=== PATIENT | female | born 1955 ===

== ENCOUNTER 2020-04-07 09:53 | Inpatient (IN) ==
[2020-04-07] MEDS ORDERED: CeFAZolin Syr 2,000MG/20 ML 2,000 MG/20 ML SYRINGE IVPB ONE (10:10)
[2020-04-07] MEDS ORDERED: Ringers Solution, Lactated 1,000 ML IVC SCH ×2 (10:15→14:00)
[2020-04-07] MEDS ORDERED: *HR* HYDROmorphone PF 0.5 MG/0.5 ML SYRINGE IVP PRN (10:40)
[2020-04-07] MEDS ORDERED: Ondansetron 4 MG/2 ML VIAL IVP PRN ×2 (10:40→14:00)
[2020-04-07] MEDS ORDERED: Promethazine 6.25 MG in Water for inj. (sterile) 20 ML IVPB PRN (10:40)
[2020-04-07] MEDS ORDERED: *HR* OxyCODONE/APAP 5/325 TABLET PO PRN ×2 (10:40→14:00)
[2020-04-07] MEDS ORDERED: Acetaminophen IV 1,000 MG/100 ML INFUS..BTL IVPB ONE (10:41)
[2020-04-07] MEDS ORDERED: *HR* Propofol 200 MG/20 ML VIAL IVP ONE (10:47)
[2020-04-07] MEDS ORDERED: Ondansetron 4 MG/2 ML VIAL ONE (10:47)
[2020-04-07] MEDS ORDERED: Dexamethasone 4 MG/ML VIAL ONE (10:47)
[2020-04-07] MEDS ORDERED: Lidocaine -MPF 2% 2 ML VIAL ONE (10:47)
[2020-04-07] MEDS ORDERED: *HR* Succinylcholine 200 MG/10 ML VIAL IVP ONE (10:47)
[2020-04-07] MEDS ORDERED: Lidocaine HCL 4 ML Topical Solution (Laryng-O-Jet Kit Sterile Pak) TP ONE (10:47)
[2020-04-07] MEDS ORDERED: Ethanol\\Acetic Acid\\Na Ace\\Ben 1,000 ML IRRIG.SOLN IR ONE (10:49)
[2020-04-07] MEDS ORDERED: Vancomycin 1,000 MG VIAL ONE (10:49)
[2020-04-07] MEDS ORDERED: ROPIVACAINE/PF/NS 0.25% 1 EACH SYRINGE INTRAART ONE (11:25)
[2020-04-07] MEDS ORDERED: Ropivacaine/PF 0.5% 30 ML VIAL ONE (11:25)
[2020-04-07] MEDS ORDERED: *HR* Midazolam HCl 2 MG/2 ML VIAL ONE (11:25)
[2020-04-07] MEDS ORDERED: Povidone-Iodine 45 ML, Sodium Chloride IRRigation 1,000 ML IR ONE (12:10)
[2020-04-07] MEDS ORDERED: *HR* FentaNYL (PF) 100 MCG/2 ML VIAL ONE (12:25)
[2020-04-07 13:52] VITALS: BP 146/81
[2020-04-07] MEDS ORDERED: Ibuprofen 600 MG TABLET PO PRN (14:00)
[2020-04-07] MEDS ORDERED: Dextrose Gel 15 GM/37.5 ML TUBE PO PRN ×2 (14:00)
[2020-04-07] MEDS ORDERED: Sennosides 8.6 MG TABLET PO PRN (14:00)
[2020-04-07] MEDS ORDERED: D5% in Water 1,000 ML IVC PRN (14:00)
[2020-04-07] MEDS ORDERED: MOM Conc 10 ML UD.LIQ PO PRN (14:00)
[2020-04-07] MEDS ORDERED: *HR* Dextrose 50 % in Water (Vial) 50 ML VIAL IVP PRN (14:00)
[2020-04-07] MEDS ORDERED: Naloxone 0.4 MG/ML INJ IVP PRN (14:00)
[2020-04-07] MEDS ORDERED: *HR* OxyCODONE Immed Rel 5 MG TABLET PO PRN (14:00)
[2020-04-07 14:09] LABS: Hematocrit 38.8 % (35.3-44.9); Hemoglobin 12.2 g/dL (11.5-15.4)
[2020-04-07] MEDS ORDERED: Patient Taking Own Medication 1 EACH OP SCH (15:00)
[2020-04-07] MEDS ORDERED: Insulin LISPRO 300 UNITS/3 ML VIAL SQ SCH ×3 (15:00→21:00)
[2020-04-07] MEDS: Insulin LISPRO 300 UNITS/3 ML VIAL SQ SCH ×2 (15:10→18:55)
[2020-04-07] MEDS ORDERED: Nitrofurantoin (BID) 100 MG CAPSULE PO SCH (18:00)
[2020-04-07] MEDS ORDERED: *HR* Enoxaparin 30 MG/0.3 ML SYRINGE SQ SCH ×2 (18:00)
[2020-04-07] MEDS ORDERED: CeFAZolin 2 GM/120 ML BAG IVPB SCH (18:00)
[2020-04-07] MEDS ORDERED: Potassium Citrate 10 MEQ TABLET.ER PO SCH (21:00)
[2020-04-08] MEDS ORDERED: Furosemide 40 MG TABLET PO SCH (09:00)
[2020-04-08] MEDS ORDERED: INSULIN DEGLUDEC 60 UNIT SQ SCH (09:00)
[2020-04-08] MEDS ORDERED: (Linagliptin [Tradjenta] 5 MG) PO SCH (09:00)
[2020-04-08] MEDS ORDERED: Venlafaxine XR (24 HR) 150 MG CAP.ER.24H PO SCH (09:00)
[2020-04-08] MEDS ORDERED: (Phentermine Hcl [Adipex-P] 37.5 MG) PO SCH (09:00)
[2020-04-08] MEDS ORDERED: allopurinoL 100 MG TABLET PO SCH (09:00)
[2020-04-08] MEDS ORDERED: calcitrioL 0.25 MCG CAPSULE PO SCH (09:00)
[2020-04-09] MEDS ORDERED: calcitrioL 0.25 MCG CAPSULE PO SCH (09:00)
== END 2020-04-07 19:51 | disposition home or self-care (01) | DRG 322 ==
LOC: SAMDAY 09:53 → 3NENU 14:00
PROVIDERS: ADMIT Orthopaedic Surgery; ATTEND Orthopaedic Surgery